=== PATIENT | male | born 1980 | race Caucasian/White ===

== ENCOUNTER 2025-04-23 10:43 | Day surgery (SDC) | payer OTHER, SELFPAY ==
[2025-04-12 09:56] VITALS: BMI 25.8
[2025-04-23 11:56] VITALS: BP 112/76; PULSE 57; RESP 16; TEMP 36.7; O2SAT 100; BMI 25.0
--- NOTE | 2025-04-23 12:30 | PM.IMHP ---
H&P: HPI History of Present Illness Date/Time: 04/23/25 12:30 Chief Complaint: screening colonoscopy Narrative: This is the patient's first colonoscopy. There are no GI symptoms and there is no family history of colorectal cancer. Review of Systems Review of Systems: All systems reviewed & are unremarkable except as noted in HPI and below PMFSH Past Medical History Medical History Dyslipidemia Surgical History Surgical History History of wisdom tooth extraction Social History Social History Smoking status: Never smoker Alcohol intake: current Alcohol use details: rarely Substance use: never Substance use type: does not use Lack of Transportation: No Lack of Food: Never True Current Housing: I Have Housing Concerned About Future Housing: No Difficulty Paying Gas/Electric Bills: No Difficulty Paying for Meds: No Currently Unemployed: No Education: Master's Degree or Higher Difficulty w/ Childcare or Family Care: No Living arrangements: with family Occupation/Education: occupation Gender identity (if verbalized by the patient): Male Spiritual care concerns: No Agree to blood products: Yes Meds Home Medications and Allergies Home Medications ?Medication ?Instructions ?Recorded ?Confirmed ?Type cholecalciferol (vitamin D3) 50 50 mcg PO DAILY #90 caps 03/15/25 04/23/25 Rx mcg (2,000 unit) capsule creatine monohydrate 5,000 mg oral mg PO 03/15/25 03/15/25 History powder packet Allergies Allergy/AdvReac Type Severity Reaction Status Date / Time No Known Allergies Allergy Verified 04/12/25 09:55 Vital Signs Vital Signs - 24 hr 04/23/25 11:56 Temperature 98.1 F Pulse Rate 57 L Respiratory Rate 16 Blood Pressure 112/76 Pulse Oximetry 100 Oxygen Delivery Room Air Exam Const: General: cooperative and healthy appearing Resp: Effort & Inspection: normal respiratory effort and able to speak in complete sentences Auscultation: clear to auscultation bilaterally Cardio: Rate: regular rate Rhythm: regular rhythm GI: Inspection: normal to inspection GI Palp: No No hepatosplenomegaly present Auscultation: normal bowel sounds Rectal Exam: deferred Skin: General skin exam: normal color Psych: Appearance: grossly normal Mental Status: mental status grossly normal Assessment and Plan Assessment and plan (1) Encounter for screening colonoscopy: Code(s): Z12.11 - Encounter for screening for malignant neoplasm of colon Status: Acute Assessment and Plan: The patient is deemed a good candidate for the procedure. Consent signed. Will proceed.
--- NOTE | 2025-04-23 12:32 | P.PNAN_ITS ---
Anes - Initial Pre Proc Eval Procedure: Operation Date: 04/23/25 12:45 Proposed Procedures p Screening Colonoscopy - Venkata Warren MD Date/Time: 04/23/25 12:32 Surgeon: Venkata Warren MD Pre Op Diagnosis: Screening Patient Data Age: 44 Gender: M Height: 1.63 m Weight: 66.1 kg Last Vital Signs Temp 36.7 C 04/23/25 11:56 Pulse 57 L 04/23/25 11:56 Resp 16 04/23/25 11:56 BP 112/76 04/23/25 11:56 Pulse Ox 100 04/23/25 11:56 O2 Del Method Room Air 04/23/25 11:56 Allergies Allergy/AdvReac Type Severity Reaction Status Date / Time No Known Allergies Allergy Verified 04/12/25 09:55 Home Medications ?Medication ?Instructions ?Recorded ?Confirmed ?Type cholecalciferol (vitamin D3) 50 50 mcg PO DAILY #90 ca ps 03/15/25 04/23/25 Rx mcg (2,000 unit) capsule creatine monohydrate 5,000 mg oral mg PO 03/15/25 1003/01 History powder packet Patient hx anesthesia problems: none Family hx anesthesia problems: none Results Review: All pre-operative results and documents have been reviewed as part of the pre- operative evaluation. [facility] Past Medical History Medical History Dyslipidemia Surgical History Surgical History History of wisdom tooth extraction Social History Social History Smoking status: Never smoker Alcohol intake: current Alcohol use details: rarely Substance use: never Substance use type: does not use Lack of Transportation: No Lack of Food: Never True Current Housing: I Have Housing Concerned About Future Housing: No Difficulty Paying Gas/Electric Bills: No Difficulty Paying for Meds: No Currently Unemployed: No Education: Master's Degree or Higher Difficulty w/ Childcare or Family Care: No Living arrangements: with family Occupation/Education: occupation Gender identity (if verbalized by the patient): Male Spiritual care concerns: No Agree to blood products: Yes Anes - Eval Final PreProcedure Day of Procedure 04/23/25 12:32 Patient weight: normal Lungs: clear to auscultation Airway: Mallampati scale class 1 Neurological: alert and oriented Last oral intake: >/= 8 hours ASA classification: I Emergent: no Anesthetic plan: proceed Anesthesia type and monitoring: monitored anesthesia care Results Review: All pre-operative results and documents have been reviewed as part of the pre- operative evaluation. Informed Consent: The patient's anesthetic plan and its attendant risks and benefits were discussed with the patient/family/POA. Questions were solicited and answers provided to the satisfaction of the patient/family/POA.
[2025-04-23] MEDS: LACTATED RINGERS 1,000 ML 150 ML IV CONT (12:37)
[2025-04-23 13:01] VITALS: BP 103/72; PULSE 62; RESP 18; TEMP 36.2; O2SAT 97
--- NOTE | 2025-04-23 13:05 | WPDANESPN ---
Anes - Prog Note Post-Op Date/Time: 04/23/25 13:05 Cardiovascular status: normal Respiratory status: normal Airway patency: baseline Mental status: baseline Post-Op hydration status: normal Vital Signs: Last Vital Signs Temp 36.7 C 04/23/25 11:56 Pulse 57 L 04/23/25 11:56 Resp 16 04/23/25 11:56 BP 112/76 04/23/25 11:56 Pulse Ox 100 04/23/25 11:56 O2 Del Method Room Air 04/23/25 11:56 Pain Score (VAS): 0 I/O: Intake & Output 04/22/25 04/23/25 04/23/25 23:59 07:59 15:59 Intake Total 0 Balance 0 Patient Feedback: Patient satisfied with anesthetic care.
[2025-04-23 13:11] VITALS: BP 109/76; PULSE 70; RESP 16; O2SAT 98
[2025-04-23 13:21] VITALS: BP 115/72; PULSE 54; RESP 16; O2SAT 99
== END 2025-04-23 13:40 | disposition home or self-care (01) ==
PROVIDERS: PCP Nurse Practitioner Family; Referring Provider Nurse Practitioner Family; Visit Provider Internal Medicine Gastroenterology
PROC: 0DJD8ZZ Inspection of Lower Intestinal Tract, Via Natural or Artificial Opening Endoscopic (ICD-10-PCS; CPT 45378; principal; 2025-04-23 12:45)
DX: Z12.11 Encounter for screening for malignant neoplasm of colon (principal)
CPT/HCPCS: 45378